=== PATIENT | female | born 1985 | race Two or more races ===

== ENCOUNTER 2018-04-10 05:59 | Inpatient (IN) | payer BC ==
[2018-04-10] MEDS ORDERED: OXYTOCIN 10 UNIT/ML 1 ML VIAL IM PRN (06:10)
[2018-04-10] MEDS ORDERED: LIDOCAINE 0.5% (PF) 5 MG/ML (50 ML SDV) SQ PRN (06:10)
[2018-04-10] MEDS ORDERED: METHYLERGONOVINE 0.2 MG/ML 1 ML AMP IM PRN (06:10)
[2018-04-10] MEDS ORDERED: CARBOPROST TROMETHAMINE 250 MCG/ML 1 ML AMP IM PRN (06:10)
[2018-04-10] MEDS ORDERED: TERBUTALINE 1 MG/ML VIAL SQ PRN (06:10)
[2018-04-10] MEDS ORDERED: OXYTOCIN 30 UNITS/500 ML NS 30 UNIT in SALINE 1 500ML.BAG IV SCH (06:15)
[2018-04-10] MEDS ORDERED: LACTATED RINGERS 1,000 ML IV SCH (06:15)
[2018-04-10 06:19] VITALS: BMI 26.6
[2018-04-10] MEDS: LACTATED RINGERS 1,000 ML IV SCH ×2 (06:21→14:02)
[2018-04-10] MEDS ORDERED: PENICILLIN G POTASSIUM 5,000,000 UNIT in DEXTROSE 5% IN WATER 100 ML IVPB STA ×2 (06:29)
[2018-04-10 06:31] LABS: Basophils % (A) 0 %; Eosinophils # (A) 0.1 k/uL (0-0.7); Eosinophils % (A) 1 %; HCT 29.5 % (34.0-46.0); HGB 9.5 gm/dL (11.4-16.0); Hypochromasia Marked; Lymphocytes # (A) 2.5 k/uL (1.0-4.8); Lymphocytes % (A) 20 %; MCHC 32.2 g/dL (31.0-37.0); Mean Platelet Volume 8.9; Monocytes # (A) 0.6 k/uL (0-1.0); Monocytes % (A) 5 %; Neutrophils # (A) 9.2 k/uL (1.3-7.7); Neutrophils % (A) 73 %; Platelet Count 299 k/uL (150-450); RBC 3.65 m/uL (3.80-5.40); RDW 15.2 % (11.5-15.5); WBC 12.6 k/uL (3.8-10.6)
[2018-04-10] MEDS ORDERED: BUTORPHANOL 1 MG/ML 1 ML VIAL IV PRN (08:28)
--- NOTE | 2018-04-10 08:28 | P.HPOB ---
History of Present Illness H&P Date: 04/10/18 Chief Complaint: IUP at 40 and 0/7 weeks This is a 32-year-old 1 para 0 at 40 and 0/sevenths weeks with an estimated due date of 226. Patient states she is feeling good movement she denies contractions or vaginal bleeding or loss of fluid. Patient has been receiving routine care with myself since the first trimester. Patient is noted to be rubella nonimmune and GBS positive. Further blood work revealed a blood type of O+, RPR nonreactive hepatitis B surface antigen negative HIV negative informaseq obtained on 10/09 and negative. She did pass her Glucola on 01/03 with a result of 80. T Was administered on 01/31. Gestational anemia was noted and 02/21 hemoglobin of 9.9 for which she is taking iron. Review of Systems Constitutional: Denies chills, Denies fatigue, Denies fever Cardiovascular: Reports leg edema Respiratory: Denies dyspnea Gastrointestinal: Denies constipation, Denies diarrhea, Denies nausea, Denies vomiting Genitourinary: Reports Past Medical History Past Medical History: No Reported History History of Any Multi-Drug Resistant Organisms: None Reported Past Surgical History: No Surgical Hx Reported Past Anesthesia/Blood Transfusion Reactions: No Reported Reaction Past Psychological History: No Psychological Hx Reported Smoking Status: Never smoker Past Alcohol Use History: None Reported Past Drug Use History: None Reported - Past Family History Mother Family Medical History: No Reported History Medications and Allergies Home Medications Medication Instructions Recorded Confirmed Type Pnv No.95/Ferrous Fum/Folic AC 1 tab PO ONCE 04/10/18 04/10/18 History [ Multivitamin Tablet] Allergies Allergy/AdvReac Type Severity Reaction Status Date / Time No Known Allergies Allergy Verified 04/10/18 06:09 Exam Osteopathic Statement: *. No significant issues noted on an osteopathic structural exam other than those noted in the History and Physical/Consult. Vital Signs Temp Pulse Resp BP Pulse Ox 04/10/18 06:08 97 F L 103 H 16 131/78 100 Intake and Output 04/09/18 04/10/18 04/10/18 22:59 06:59 14:59 Other: Weight 70.307 kg Targeted physical exam was performedin general this is a well-nourished well- developed female in no acute distress breathing is noted to be nonlabored and lungs are noted to be clear to auscultation bilaterally, heart is known to have a regular rate and rhythm, abdomen to be gravid and appropriate for gestational age, on vaginal exam she is noted to be 4/80/-1 amniotomy performed with scant fluid vertex presentation is confirmed by ultrasound. Results Result Diagrams: 04/10/18 06:25 Abnormal Lab Results - Last 24 Hours (Table) 04/10/18 Range/Units 06:25 WBC 12.6 H (3.8-10.6) k/uL RBC 3.65 L (3.80-5.40) m/uL Hgb 9.5 L (11.4-16.0) gm/dL Hct 29.5 L (34.0-46.0) % Neutrophils # 9.2 H (1.3-7.7) k/uL Assessment and Plan (1) Term Current Visit: Yes Status: Acute Code(s): Z34.80 - ENCOUNTER FOR SUPRVSN OF NORMAL , UNSP TRIMESTER SNOMED Code(s): 22841811 (2) Positive GBS test Current Visit: Yes Status: Acute Code(s): B95.1 - STREPTOCOCCUS, GROUP B, CAUSING DISEASES CLASSD [facility] SNOMED Code(s): 1759003418027 Plan: Patient is admitted to labor and delivery for Pitocin induction of labor. Amniotomy was performed and scant fluid was obtained most likely to the low station of the head. Patient does desire epidural for pain management we will consult anesthesia at that time. Anticipate spontaneous vaginal delivery later this afternoon.
[2018-04-10] MEDS ORDERED: PRENATAL VIT-IRON-FOLIC ACID 1 EACH CAP PO ONE (08:30)
[2018-04-10] MEDS ORDERED: fentaNYL (PF) 50 MCG/ML 5 ML AMP ONE (09:52)
[2018-04-10] MEDS ORDERED: ROPIVACAINE 5MG/ML 20ML VIAL ONE (09:52)
[2018-04-10] MEDS ORDERED: SODIUM CHLORIDE 0.9% 100 ML BAG ONE (09:52)
[2018-04-10] MEDS: PENICILLIN G POTASSIUM 2,500,000 UNIT in DEXTROSE 5% IN WATER 100 ML IVPB SCH ×4 (11:40→23:14)
[2018-04-10] MEDS ORDERED: ROPIVACAINE 100 MG, fentaNYL (PF) 200 MCG in SODIUM CHLORIDE 0.9% 76 ML EPIDURAL ONE (12:36)
[2018-04-10] MEDS ORDERED: SIMETHICONE 80 MG CHEWABLE PO PRN (15:26)
[2018-04-10] MEDS ORDERED: LANOLIN CREAM 5 GM TUBE TOPICAL PRN (15:26)
[2018-04-10] MEDS ORDERED: diphenhydrAMINE 25 MG CAP PO PRN (15:26)
[2018-04-10] MEDS ORDERED: diphenhydrAMINE 50 MG/ML 1 ML VIAL IVP PRN ×2 (15:26)
[2018-04-10] MEDS ORDERED: ZOLPIDEM 5 MG TAB PO PRN (15:26)
[2018-04-10] MEDS ORDERED: diphenhydrAMINE 50 MG CAP PO PRN (15:26)
[2018-04-10] MEDS ORDERED: WITCH HAZEL 1 EACH MED..PAD TOPICAL PRN (15:26)
[2018-04-10] MEDS ORDERED: ACETAMINOPHEN TAB 325 MG TAB PO PRN (15:26)
[2018-04-10] MEDS ORDERED: HYDROCORTISONE 2.5% RECTAL CREAM 30 GM TUBE RECTAL PRN (15:26)
[2018-04-10] MEDS ORDERED: BENZOCAINE/MENTHOL SPRAY 1 GM/SPRAY AEROSOL TOPICAL PRN (15:26)
[2018-04-10] MEDS ORDERED: OXYTOCIN 20 UNITS/1000 ML NS 1,000 ML IV SCH (15:30)
--- NOTE | 2018-04-10 15:32 | P.PROBDLV ---
Vaginal Delivery Note - . Vaginal Delivery Note: This is a very pleasant 32-year-old 1 para 0 at 40-0/7 weeks that presented to labor and delivery for elective induction of labor. Patient noted good movement at that time Pitocin induction of labor was begun. Patient became uncomfortable eventually requesting an epidural which was placed without difficulty by the anesthesia department. Patient progressed to complete began pushing and secondary to nonreassuring heart tones with the scalp visable, labial seperation the vacuum was placed. Suction was applied into the green zone through 2 contractions 3 pulls and the infant was delivered via vacuum assist vaginal delivery. At 1504, weight of 7 lbs. 11 oz. with Apgars of 7 and 9 at one and 5 minutes respectively. A midline episiotomy was preformed along with the vacuum assist vaginal delivery. A slight extension to a third degree was noted and this was repaired in the usual fashion with 3-0 Rapide. Rectal exam was performed before and after the vaginal repair was completed and noted to be intact with no defects being noted. The placenta was doubly clamped and cut after a 2 minute delay and the placenta was delivered spontaneously intact with a three-vessel cord being noted. Bleeding was noted to be minimal and the uterus was firm and below the umbilicus estimated blood loss for this delivery was 300 mL. Inspection the patient's vaginal vault noted no further defects. Infant and patient tolerated delivery well and are resting comfortably.
[2018-04-10] MEDS: IBUPROFEN 600 MG TAB PO PRN (17:18)
[2018-04-10] MEDS: SENNOSIDES-DOCUSATE SODIUM 1 EACH TAB PO SCH (20:34)
[2018-04-11] MEDS: IBUPROFEN 600 MG TAB PO PRN ×2 (00:23→15:12)
[2018-04-11 07:06] LABS: Basophils % (A) 0 %; Eosinophils # (A) 0.1 k/uL (0-0.7); Eosinophils % (A) 0 %; HCT 24.5 % (34.0-46.0); Hypochromasia Marked; Lymphocytes # (A) 1.7 k/uL (1.0-4.8); Lymphocytes % (A) 9 %; MCH 24.7 pg (25.0-35.0); MCHC 30.1 g/dL (31.0-37.0); MCV 82.1 fL (80.0-100.0); Mean Platelet Volume 9.6; Monocytes # (A) 0.7 k/uL (0-1.0); Monocytes % (A) 4 %; Neutrophils # (A) 15.7 k/uL (1.3-7.7); Neutrophils % (A) 85 %; Platelet Count 247 k/uL (150-450); RBC 2.99 m/uL (3.80-5.40); RDW 15.4 % (11.5-15.5); WBC 18.4 k/uL (3.8-10.6)
[2018-04-11 07:16] LABS: HGB 7.4 gm/dL (11.4-16.0)
[2018-04-11 08:23] VITALS: BP 130/74; PULSE 100; RESP 19; TEMP 97.6
--- NOTE | 2018-04-11 08:23 | P.DS ---
Providers Date of admission: 04/10/18 05:59 Expected date of discharge: 04/11/18 Attending physician: Iram Sands Primary care physician: Stated None - Discharge Diagnosis(es) (1) Term Current Visit: Yes Status: Acute (2) Positive GBS test Current Visit: Yes Status: Acute (3) Status post vacuum-assisted vaginal delivery Current Visit: Yes Status: Acute (4) Third degree perineal laceration Current Visit: Yes Status: Acute Hospital Course: This is a 32-year-old 1 para 0 admitted to labor and delivery for elective induction of labor at 40 0/7 weeks. Pitocin induction of labor was begun and patient progressed through labor amniotomy was performed and clear fluid was obtained. Patient became uncomfortable eventually requesting an epidural which was placed by anesthesia without difficulty. Patient progressed to complete began pushing and secondary to nonreassuring heart tones a vacuum was applied and a vacuum-assisted vaginal delivery was completed with 2 sets of contractions. A midline episiotomy was performed prior to vacuum placement this had a slight extension to a third-degree. Patient had a viable female at 1504 weight of 7 lbs. 11 oz. Apgars of 7 and 9 at one and 5 minutes respectively. Patient has done well . She is involuting and voiding without difficulty. She denies pain this morning. She states her lochia is moderate. She is breast feeding without difficulty. Patient Condition at Discharge: Good Plan - Discharge Summary New Discharge Prescriptions: No Action Pnv No.95/Ferrous Fum/Folic AC [ Multivitamin Tablet] 1 tab PO ONCE Discharge Medication List Pnv No.95/Ferrous Fum/Folic AC [ Multivitamin Tablet] 1 tab PO ONCE [History] Follow up Appointment(s)/Referral(s): Iram Sands DO [Doctor of Osteopathic Medicine] - 4 Weeks Patient Instructions/Handouts: Vaginal Delivery (DC), Vaginal Delivery (GEN) Activity/Diet/Wound Care/Special Instructions: No tub baths or intercourse until 6 weeks Discharge Disposition: HOME SELF-CARE
[2018-04-11] MEDS ORDERED: MEASLES-MUMPS-RUBELLA VACC/PF 12,500 UNIT/0.5 ML VIAL SQ ONE (08:45)
[2018-04-11] MEDS: SENNOSIDES-DOCUSATE SODIUM 1 EACH TAB PO SCH (09:35)
== END 2018-04-11 16:15 | disposition home or self-care (01) | DRG 768 ==
LOC: 4FBP 05:59
PROVIDERS: ADMIT Obstetrics & Gynecology Obstetrics; ATTEND Obstetrics & Gynecology Obstetrics
PROC: 3E0R3NZ Introduction of Analgesics, Hypnotics, Sedatives into Spinal Canal, Percutaneous Approach (ICD-10-PCS; principal; 2018-04-10)
PROC: 0DQR0ZZ Repair Anal Sphincter, Open Approach (ICD-10-PCS; principal; 2018-04-10)
PROC: 10907ZC Drainage of Amniotic Fluid, Therapeutic from Products of Conception, Via Natural or Artificial Opening (ICD-10-PCS; principal; 2018-04-10)
PROC: 3E033VJ Introduction of Other Hormone into Peripheral Vein, Percutaneous Approach (ICD-10-PCS; principal; 2018-04-10)
PROC: 00HU33Z Insertion of Infusion Device into Spinal Canal, Percutaneous Approach (ICD-10-PCS; principal; 2018-04-10)
PROC: 10D07Z6 Extraction of Products of Conception, Vacuum, Via Natural or Artificial Opening (ICD-10-PCS; principal; 2018-04-10)
DX: O48.0 Post-term pregnancy (principal); Z37.0 Single live birth; O70.20 Third degree perineal laceration during delivery, unspecified; Z3A.40 40 weeks gestation of pregnancy; O99.824 Streptococcus B carrier state complicating childbirth; O99.02 Anemia complicating childbirth; O76 Abnormality in fetal heart rate and rhythm complicating labor and delivery
CPT/HCPCS: 85025; 86850; 86900; 86901; 88307; 90707

== ENCOUNTER 2020-08-28 06:12 | Inpatient (IN) | payer BC ==
[2020-08-28] MEDS ORDERED: METHYLERGONOVINE 0.2 MG/ML 1 ML AMP IM PRN (06:34)
[2020-08-28] MEDS ORDERED: LIDOCAINE 0.5% (PF) 5 MG/ML (50 ML SDV) SQ PRN (06:34)
[2020-08-28] MEDS ORDERED: OXYTOCIN 10 UNIT/ML 1 ML VIAL IM PRN (06:34)
[2020-08-28] MEDS ORDERED: TERBUTALINE 1 MG/ML VIAL SQ PRN (06:34)
[2020-08-28] MEDS ORDERED: CARBOPROST TROMETHAMINE 250 MCG/ML 1 ML AMP IM PRN (06:34)
[2020-08-28] MEDS ORDERED: AMPICILLIN 2,000 MG in SODIUM CHLORIDE 0.9% 100 ML IVPB STA (06:34)
[2020-08-28] MEDS ORDERED: OXYTOCIN 30 UNITS/500 ML NS 30 UNIT in SALINE 1 500ML.BAG IV SCH ×2 (06:45→12:45)
[2020-08-28] MEDS: LACTATED RINGERS 1,000 ML IV SCH ×2 (06:53→09:55)
[2020-08-28 07:18] LABS: Anisocytosis Moderate; Basophils # (A) 0.1 k/uL (0-0.2); Basophils % (A) 1 %; Eosinophils # (A) 0.1 k/uL (0-0.7); Eosinophils % (A) 1 %; HCT 39.6 % (34.0-46.0); HGB 12.5 gm/dL (11.4-16.0); Hypochromasia Slight; Lymphocytes # (A) 2.2 k/uL (1.0-4.8); Lymphocytes % (A) 23 %; MCH 28.4 pg (25.0-35.0); MCHC 31.6 g/dL (31.0-37.0); MCV 89.9 fL (80.0-100.0); Mean Platelet Volume 9.6; Monocytes # (A) 0.5 k/uL (0-1.0); Monocytes % (A) 5 %; Neutrophils # (A) 6.6 k/uL (1.3-7.7); Neutrophils % (A) 68 %; Platelet Count 326 k/uL (150-450); RBC 4.41 m/uL (3.80-5.40); RDW 22.5 % (11.5-15.5); WBC 9.7 k/uL (3.8-10.6)
[2020-08-28] MEDS ORDERED: ROPIVACAINE 5MG/ML 20ML VIAL ONE (09:28)
[2020-08-28] MEDS ORDERED: fentaNYL (PF) 50 MCG/ML 5 ML AMP ONE (09:28)
[2020-08-28] MEDS ORDERED: SODIUM CHLORIDE 0.9% 100 ML BAG ONE (09:28)
--- NOTE | 2020-08-28 10:18 | P.HPOB ---
History of Present Illness H&P Date: 08/28/20 Chief Complaint: IUP at 39-6/7 weeks, history of vacuum assist vaginal delivery This is a 35-year-old at 39-6/7 weeks, EDC of 08/29/2020 based on LMP c/w US, that presents to labor and delivery for elective induction of labor. Patient has been receiving routine care with myself. Patient has been seeing hematology for known iron deficiency anemia and has received iron infusions. Patient notes good movement this morning, she denies contractions loss of fluid or vaginal bleeding. Patient has a blood type of O+, rubella status immune, RPR nonreactive, hepatitis B surface antigen negative, HIV negative, she did undergo genetic screening with [place] [id number] which was negative, group beta strep culture was positive Review of Systems Constitutional: Denies chills, Denies fatigue, Denies fever Ears, nose, mouth and throat: Denies headache Cardiovascular: Reports leg edema Respiratory: Denies dyspnea Gastrointestinal: Denies constipation, Denies diarrhea, Denies nausea, Denies vomiting Genitourinary: Reports Past Medical History Past Medical History: No Reported History History of Any Multi-Drug Resistant Organisms: None Reported Past Surgical History: No Surgical Hx Reported Past Anesthesia/Blood Transfusion Reactions: No Reported Reaction Smoking Status: Never smoker - Past Family History Mother Family Medical History: No Reported History Medications and Allergies Home Medications Medication Instructions Recorded Confirmed Type Pnv No.95/Ferrous Fum/Folic AC 1 tab PO ONCE 04/10/18 08/28/20 History [ Multivitamin Tablet] Aspirin 1 tab PO DAILY 04/09/20 08/28/20 History Allergies Allergy/AdvReac Type Severity Reaction Status Date / Time No Known Allergies Allergy Verified 08/28/20 06:33 Exam Osteopathic Statement: *. No significant issues noted on an osteopathic structural exam other than those noted in the History and Physical/Consult. 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 heart tones returned be category 1 and she is olivier irregularly. Results Result Diagrams: 08/28/20 06:56 Abnormal Lab Results - Last 24 Hours (Table) 08/28/20 Range/Units 06:56 RDW 22.5 H (11.5-15.5) % Assessment and Plan (1) H/O delivery by vacuum extraction, currently Current Visit: Yes Status: Acute Code(s): O09.299 - SUPRVSN OF PREG W POOR REPRODCTV OR OBSTET HISTORY, UNSP TRI SNOMED Code(s): 403900840 (2) Positive GBS test Current Visit: No Status: Acute Code(s): B95.1 - STREPTOCOCCUS, GROUP B, CAUSING DISEASES CLASSD [facility] SNOMED Code(s): 476287964 (3) Term Current Visit: No Status: Acute Code(s): Z34.80 - ENCOUNTER FOR SUPRVSN OF NORMAL , UNSP TRIMESTER SNOMED Code(s): 96305447 Plan: 35-year-old at 39 and 6 that presents to labor and delivery for induction of labor. Patient is admitted to labor and delivery and Pitocin induction of labor is begun. Antibiotics are begun given her group beta strep culture being positive. Epidural is desired by the patient for analgesia during labor. A nesthesia will be notified. Anticipate spontaneous vaginal delivery later today.
[2020-08-28] MEDS: AMPICILLIN 1,000 MG in SODIUM CHLORIDE 0.9% 50 ML IVPB SCH ×2 (10:56→16:19)
[2020-08-28] MEDS ORDERED: SIMETHICONE 80 MG CHEWABLE PO PRN (12:42)
[2020-08-28] MEDS ORDERED: diphenhydrAMINE 50 MG CAP PO PRN (12:42)
[2020-08-28] MEDS ORDERED: BENZOCAINE/MENTHOL SPRAY 1 GM/SPRAY AEROSOL TOPICAL PRN (12:42)
[2020-08-28] MEDS ORDERED: diphenhydrAMINE 50 MG/ML 1 ML VIAL IVP PRN ×2 (12:42)
[2020-08-28] MEDS ORDERED: diphenhydrAMINE 25 MG CAP PO PRN (12:42)
[2020-08-28] MEDS ORDERED: ZOLPIDEM 5 MG TAB PO PRN (12:42)
[2020-08-28] MEDS ORDERED: ACETAMINOPHEN TAB 325 MG TAB PO PRN (12:42)
[2020-08-28] MEDS ORDERED: HYDROCORTISONE 2.5% RECTAL CREAM 30 GM TUBE RECTAL PRN (12:42)
[2020-08-28] MEDS ORDERED: LANOLIN CREAM 5 GM TUBE TOPICAL PRN (12:42)
[2020-08-28] MEDS ORDERED: PRENATAL VIT-IRON-FOLIC ACID 1 EACH CAP PO ONE (12:45)
--- NOTE | 2020-08-28 12:50 | P.PROBDLV ---
Vaginal Delivery Note - . Vaginal Delivery Note: 35-year-old at 39-6/7 weeks presented to labor and delivery for induction of labor. Patient had an ultrasound yesterday with borderline low amniotic fluid index at 9. Patient has a history of iron deficiency anemia for which she has been receiving iron infusions. Patient in addition had a vacuum-assisted vaginal delivery with her last delivery secondary to nonreassuring heart tones. Patient was admitted to labor and delivery and Pitocin induction of labor was begun per hospital protocol. Patient was noted to be 4 cm upon amniotomy, scant fluid was appreciated. Vertex presentation was confirmed by ultrasound. Patient soon became uncomfortable and did request epidural placement. Anesthesia was notified and epidural was placed without difficulty. Patient progressed to complete noted category 2 heart tones. Patient began pushing bradycardia was noted with heart tones in the 70s therefore a vacuum was applied and with one push from mom and pull of the vaccum the was delivered in an occiput posterior presentation suction was deactivated and the anterior followed by the posterior shoulder were delivered along with the body. (Vacuum was only applied prior to pushing, head was appreciated within the vacuum cup no vaginal mucosa was appreciated, vacuum was applied with contraction noted to be within the green section of pressure.) The umbilical cord was doubly clamped and cut meconium-stained fluid was appreciated. The was handed off to awaiting RN for evaluation. Spontaneous cry was noted at . Scant amniotic fluid was appreciated throughout the delivery. Cord blood was then taken. The placenta was then delivered spontaneously intact with three-vessel cord being noted. On inspection the patient's vaginal vault a second-degree laceration was appreciated this was repaired in the usual fashion with 3-0 Rapide. Instillation of lidocaine was preformed prior to repair. Hemostasis was appreciated after repair. Uterus was noted to be firm and below the umbilicus after delivery. Estimated blood loss 200 mL. Rectal exam was performed after repair and found to be normal in nature. All counts were noted to be correct 2 at the end of the delivery. Patient and infant tolerated delivery well and are resting comfortably.
[2020-08-28] MEDS: IBUPROFEN 600 MG TAB PO SCH ×2 (16:15→20:33)
[2020-08-28 20:58] VITALS: RESP 16
[2020-08-29] MEDS: SENNOSIDES-DOCUSATE SODIUM 1 EACH TAB PO SCH ×3 (00:14→19:51)
[2020-08-29 07:44] LABS: Anisocytosis Moderate; Basophils % (A) 0 %; Eosinophils # (A) 0.1 k/uL (0-0.7); Eosinophils % (A) 0 %; HCT 35.6 % (34.0-46.0); HGB 11.6 gm/dL (11.4-16.0); Hypochromasia Slight; Lymphocytes # (A) 1.4 k/uL (1.0-4.8); Lymphocytes % (A) 10 %; MCH 29.7 pg (25.0-35.0); MCHC 32.7 g/dL (31.0-37.0); MCV 90.8 fL (80.0-100.0); Mean Platelet Volume 8.8; Monocytes # (A) 0.5 k/uL (0-1.0); Monocytes % (A) 3 %; Neutrophils # (A) 12.5 k/uL (1.3-7.7); Neutrophils % (A) 86 %; Platelet Count 271 k/uL (150-450); RBC 3.92 m/uL (3.80-5.40); RDW 21.9 % (11.5-15.5); WBC 14.6 k/uL (3.8-10.6)
[2020-08-29] MEDS: IBUPROFEN 600 MG TAB PO SCH ×2 (09:03→15:45)
[2020-08-29] MEDS: PRENATAL VIT-IRON-FOLIC ACID 1 EACH CAP PO SCH (09:06)
--- NOTE | 2020-08-29 10:06 | P.PNOBGVD ---
Subjective - Subjective Patient reports: Reports appetite normal, Reports voiding normally, Reports pain well controlled, Reports ambulating normally : doing well, in NICU (Being followed for possible cephalohematoma.) Objective - Latest Vital Signs Latest vital signs: Vital Signs Temp Pulse Resp BP Pulse Ox 08/29/20 09:00 97.9 F 75 16 110/72 08/29/20 00:00 98.4 F 87 16 109/63 08/28/20 20:00 97.8 F 67 14 100/63 97 08/28/20 14:35 97.4 F L 68 14 110/58 08/28/20 14:05 70 14 101/57 08/28/20 13:35 85 14 104/64 08/28/20 13:20 76 14 101/58 08/28/20 13:05 78 14 104/58 08/28/20 12:50 85 16 102/55 08/28/20 12:35 98.6 F 89 16 110/58 Intake and Output 08/28/20 08/29/20 08/29/20 22:59 06:59 14:59 Other: # Voids 1 1 - Exam Extremities: Present: normal Abdomen: Present: normal appearance, soft Uterus: Present: normal, firm (The uterine fundus as tonic and nontender at the umbilicus.) - Labs Labs: Abnormal Lab Results - Last 24 Hours (Table) 08/29/20 Range/Units 07:28 WBC 14.6 H (3.8-10.6) k/uL RDW 21.9 H (11.5-15.5) % Neutrophils # 12.5 H (1.3-7.7) k/uL Assessment and Plan (1) Status post vacuum-assisted vaginal delivery Current Visit: No Status: Acute Code(s): Z87.59 - PERSONAL HISTORY OF COMP OF PREG, CHLDBRTH AND THE PUERP SNOMED Code(s): 999459730 Plan: Continue routine care. I would anticipate possible discharge home tomorrow pending no complications.
[2020-08-30] MEDS: IBUPROFEN 600 MG TAB PO SCH ×2 (04:26→07:51)
[2020-08-30] MEDS: SENNOSIDES-DOCUSATE SODIUM 1 EACH TAB PO SCH (08:21)
[2020-08-30] MEDS: PRENATAL VIT-IRON-FOLIC ACID 1 EACH CAP PO SCH (08:21)
[2020-08-30 08:29] VITALS: BP 99/62; PULSE 70; TEMP 97.9
--- NOTE | 2020-08-30 11:42 | P.DS ---
Providers Date of admission: 08/28/20 06:12 Expected date of discharge: 08/30/20 Attending physician: Iram Sansd Primary care physician: Stated None - Discharge Diagnosis(es) (1) Status post vacuum-assisted vaginal delivery Current Visit: No Status: Acute Hospital Course: The patient is a 35-year-old 2 para 1001 admitted at 39-6/7 weeks by louis crocker. She is admitted for elective induction with all signs reassuring. Her has been complicated only by iron deficiency anemia for which she has received iron infusions during the through hematology. Group B strep status is negative. On labor and delivery, she had Pitocin started followed by artificial rupture of membranes. She made progress and had an epidural catheter placed for analgesia. She ultimately progressed to complete and then had a vacuum-assisted normal spontaneous vaginal delivery of a viable 6 lbs. 14 oz. baby boy with Apgars of 8 at 1 minute and 9 at 5 minutes. Her course was unremarkable with vital signs or any stable and her temperature was afebrile throughout. Her was taken to the nursery for observation for possible cephalohematoma but was released to the room on day #1. She was deemed stable for discharge on day #2 when the was released and was discharged home to follow-up in the office in 6 weeks' time routinely. Discharge instructions included calling for any significantly increased bleeding or foul-smelling lochia, significantly increased fever abdominal pain, perineal complaints, breast complaints, or anything also concerned her. She was additionally instructed to have nothing in the vagina for at least 6 weeks time to include intercourse. She understood her instructions and agrees to follow up as noted above. Discharge medications included continued vitamins as she has opted to breast-feed. She was otherwise to use [id number] analgesic pain medications as needed. Maternal blood type is O+ and rubella status is immune. Procedures: #1. Pitocin induction #2. Artificial rupture of membranes #3. Epidural anal gesia #4. Vacuum-assisted vaginal delivery #5. Repair of perineal laceration Patient Condition at Discharge: Stable Plan - Discharge Summary New Discharge Prescriptions: No Action Pnv No.95/Ferrous Fum/Folic AC [ Multivitamin Tablet] 1 tab PO ONCE Aspirin 1 tab PO DAILY Discharge Medication List Pnv No.95/Ferrous Fum/Folic AC [ Multivitamin Tablet] 1 tab PO ONCE 04/10/18 [History] Aspirin 1 tab PO DAILY 04/09/20 [History] Follow up Appointment(s)/Referral(s): Iram Sands DO [Doctor of Osteopathic Medicine] - 6 Weeks Discharge Disposition: HOME SELF-CARE
== END 2020-08-30 13:50 | disposition home or self-care (01) | DRG 807 ==
LOC: 4FBP 06:12
PROVIDERS: ADMIT Obstetrics & Gynecology Obstetrics; ATTEND Obstetrics & Gynecology Obstetrics
PROC: 0KQM0ZZ Repair Perineum Muscle, Open Approach (ICD-10-PCS; principal; 2020-08-28)
PROC: 3E033VJ Introduction of Other Hormone into Peripheral Vein, Percutaneous Approach (ICD-10-PCS; principal; 2020-08-28)
PROC: 00HU33Z Insertion of Infusion Device into Spinal Canal, Percutaneous Approach (ICD-10-PCS; principal; 2020-08-28)
PROC: 3E0R3NZ Introduction of Analgesics, Hypnotics, Sedatives into Spinal Canal, Percutaneous Approach (ICD-10-PCS; principal; 2020-08-28)
PROC: 10907ZC Drainage of Amniotic Fluid, Therapeutic from Products of Conception, Via Natural or Artificial Opening (ICD-10-PCS; principal; 2020-08-28)
PROC: 10D07Z6 Extraction of Products of Conception, Vacuum, Via Natural or Artificial Opening (ICD-10-PCS; principal; 2020-08-28)
DX: O99.02 Anemia complicating childbirth (principal); Z37.0 Single live birth; D50.9 Iron deficiency anemia, unspecified; O70.1 Second degree perineal laceration during delivery; O76 Abnormality in fetal heart rate and rhythm complicating labor and delivery; O77.0 Labor and delivery complicated by meconium in amniotic fluid; O99.824 Streptococcus B carrier state complicating childbirth; Z3A.39 39 weeks gestation of pregnancy; Z79.82 Long term (current) use of aspirin
CPT/HCPCS: 85025; 86850; 86900; 86901; 88307

== ENCOUNTER 2023-09-13 06:00 | Inpatient (IN) | payer BC ==
[2023-09-13] MEDS ORDERED: miSOPROStoL 200 MCG TAB PO PRN (06:26)
[2023-09-13] MEDS ORDERED: TRANEXAMIC 1,000 MG/100ML-NACL 1,000 MG in EMPTY BAG 1 BAG IV PRN (06:26)
[2023-09-13] MEDS ORDERED: TERBUTALINE 1 MG/ML VIAL SQ PRN (06:26)
[2023-09-13] MEDS ORDERED: METHYLERGONOVINE 0.2 MG/ML 1 ML AMP IM PRN (06:26)
[2023-09-13] MEDS ORDERED: OXYTOCIN 10 UNIT/ML 1 ML VIAL IM PRN (06:26)
[2023-09-13] MEDS ORDERED: CARBOPROST TROMETHAMINE 250 MCG/ML 1 ML AMP IM PRN (06:26)
[2023-09-13] MEDS ORDERED: miSOPROStoL 200 MCG TAB RECTAL PRN (06:26)
[2023-09-13 06:42] LABS: Anisocytosis Moderate; Basophils % (A) 0 %; Eosinophils # (A) 0.1 k/uL (0-0.7); Eosinophils % (A) 1 %; HCT 29.9 % (34.0-46.0); HGB 9.1 gm/dL (11.4-16.0); Hypochromasia Marked; Lymphocytes % (A) 23 %; MCH 24.2 pg (25.0-35.0); MCHC 30.4 g/dL (31.0-37.0); MCV 79.6 fL (80.0-100.0); Mean Platelet Volume 9.5; Microcytosis Slight; Monocytes # (A) 0.5 k/uL (0-1.0); Monocytes % (A) 5 %; Neutrophils # (A) 5.8 k/uL (1.3-7.7); Neutrophils % (A) 68 %; Platelet Count 338 k/uL (150-450); RBC 3.76 m/uL (3.80-5.40); RDW 20.9 % (11.5-15.5); WBC 8.4 k/uL (3.8-10.6)
[2023-09-13] MEDS: LACTATED RINGERS 1,000 ML IV SCH (06:47)
[2023-09-13] MEDS: AMPICILLIN 2,000 MG in SODIUM CHLORIDE 0.9% 100 ML IVPB STA (06:47)
[2023-09-13] MEDS: OXYTOCIN 30 UNITS/500 ML NS 30 UNIT in SALINE 1 500ML.BAG IV SCH (07:00)
[2023-09-13] MEDS: PENICILLIN G POTASSIUM 5,000,000 UNIT in DEXTROSE 5% IN WATER 100 ML IVPB STA (07:11)
--- NOTE | 2023-09-13 08:31 | P.HPOB ---
History of Present Illness H&P Date: 09/13/23 Chief Complaint: IUP at 39 weeks, anemia 38-year-old at 39 weeks of that presents to labor and delivery for scheduled induction of labor. Patient has known anemia and has been receiving iron infusions. Hemoglobin upon admission is 9.1. Patient notes good movement denies contractions vaginal bleeding or loss of fluid. On blood work this patient has a blood type of a positive, rubella status immune, hepatitis B surface engine negative, HIV negative, RPR is nonreactive, grew beta strep culture was positive. Review of Systems Constitutional: Denies chills, Denies fatigue, Denies fever Ears, nose, mouth and throat: Denies headache Cardiovascular: Denies leg edema Respiratory: Denies dyspnea Gastrointestinal: Denies constipation, Denies diarrhea, Denies nausea, Denies vomiting Genitourinary: Reports Past Medical History Past Medical History: Blood Disorder Additional Past Medical History / Comment(s): ANEMIA. History of Any Multi-Drug Resistant Organisms: None Reported Past Surgical History: No Surgical Hx Reported Past Anesthesia/Blood Transfusion Reactions: No Reported Reaction Past Psychological History: No Psychological Hx Reported Smoking Status: Never smoker Past Alcohol Use History: None Reported Past Drug Use History: None Reported - Past Family History Mother Family Medical History: No Reported History Medications and Allergies Home Medications Medication Instructions Recorded Confirmed Type Pnv No.95/Ferrous Fum/Folic AC 1 tab PO ONCE 04/10/18 09/13/23 History [ Multivitamin Tablet] Ferrous Sulfate [Iron] 1 tab PO DAILY 09/13/23 09/13/23 History Allergies Allergy/AdvReac Type Severity Reaction Status Date / Time No Known Allergies Allergy Verified 09/13/23 06:25 Exam Osteopathic Statement: *. No significant issues noted on an osteopathic structural exam other than those noted in the History and Physical/Consult. Vital Signs Temp Pulse Resp BP Pulse Ox 09/13/23 06:29 98.0 F 100 16 119/57 98 Intake and Output 09/12/23 09/13/23 09/13/23 22:59 06:59 14:59 Other: Weight 65.771 kg Targeted physical exam is performed this date in general this is a well- nourished well-developed female in no acute distress, breathing is nonlabored, heart has a regular rate rhythm, abdomen is gravid, on cervical exam she is 4/50/-2 station amniotomy was performed and scant fluid was obtained. heart tones noted to be category 1 and she is olivier every 1 to 2 minutes. Results Result Diagrams: 09/13/23 06:26 Abnormal Lab Results - Last 24 Hours (Table) 09/13/23 Range/Units 06:26 RBC 3.76 L (3.80-5.40) m/uL Hgb 9.1 L (11.4-16.0) gm/dL Hct 29.9 L (34.0-46.0) % MCV 79.6 L (80.0-100.0) fL MCH 24.2 L (25.0-35.0) pg MCHC 30.4 L (31.0-37.0) g/dL RDW 20.9 H (11.5-15.5) % Assessment and Plan (1) Anemia Current Visit: Yes Status: Acute Code(s): D64.9 - ANEMIA, UNSPECIFIED SNOMED Code(s): 663214654 (2) Positive GBS test Current Visit: No Status: Acute Code(s): B95.1 - STREPTOCOCCUS, GROUP B, [facility]US[facility] Code(s): 616844582 (3) Term Current Visit: No Status: Acute Code(s): Z34.80 - ENCOUNTER FOR SUPRVSN OF NORMAL , UNSP TRIMESTER SNOMED Code(s): 78935478 Plan: 38-year-old 3 para 2 at 39-0/7 weeks that presents to labor and delivery for induction of labor. Patient is admitted to labor and delivery and Pitocin induction of labor was begun per hospital protocol. Options for analgesia are discussed patient will consider but states she would like an epidural when appropriate. Anticipate spontaneous vaginal delivery.
[2023-09-13] MEDS ORDERED: ROPIVACAINE 5 MG/ML 30 ML VIAL ONE (09:16)
[2023-09-13] MEDS ORDERED: fentaNYL (PF) 50 MCG/ML 5 ML AMP ONE (09:16)
[2023-09-13] MEDS ORDERED: SODIUM CHLORIDE 0.9% 250 ML BAG ONE (09:16)
[2023-09-13] MEDS ORDERED: PENICILLIN G POTASSIUM 2,500,000 UNIT in DEXTROSE 5% IN WATER 100 ML IVPB SCH (10:30)
[2023-09-13] MEDS: AMPICILLIN 1,000 MG in SODIUM CHLORIDE 0.9% 50 ML IVPB SCH (11:07)
[2023-09-13] MEDS ORDERED: SIMETHICONE 80 MG CHEWABLE PO PRN (15:37)
[2023-09-13] MEDS ORDERED: ACETAMINOPHEN TAB 325 MG TAB PO PRN (15:37)
[2023-09-13] MEDS ORDERED: LANOLIN CREAM 1 GM TUBE TOPICAL PRN (15:37)
[2023-09-13] MEDS ORDERED: ZOLPIDEM 5 MG TAB PO PRN (15:37)
[2023-09-13] MEDS ORDERED: diphenhydrAMINE 25 MG CAP PO PRN (15:37)
[2023-09-13] MEDS ORDERED: HYDROCORTISONE 2.5% RECTAL CREAM 30 GM TUBE RECTAL PRN (15:37)
[2023-09-13] MEDS ORDERED: diphenhydrAMINE 50 MG/ML 1 ML VIAL IVP PRN ×2 (15:37)
[2023-09-13] MEDS ORDERED: diphenhydrAMINE 50 MG CAP PO PRN (15:37)
--- NOTE | 2023-09-13 15:38 | P.PROBDLV ---
Vaginal Delivery Note - . Vaginal Delivery Note: Findings viable male delivered at 1516, weight of 7 pounds 7 ounces, Apgars of 7 and 9 at 1 and 5 minutes respectively. 38-year-old 3 para 2-0-0-2 presented to labor and delivery this morning for scheduled induction of labor. Patient was noted to be 4+ centimeters in the office and known grew beta strep positive. Patient is 39-0/7 weeks today. Patient is admitted and Pitocin induction of labor has begun. Amniotomy is performed and clear fluid was obtained. Patient did become uncomfortable and request epidural placement. Patient made slow progress to complete. Once completely dilated patient began pushing and had a normal spontaneous vaginal delivery of a viable male infant at 1516 weight is pending. Loose body cord was delivered through. After 2-minute delay the umbilical cord was doubly clamped and cut and the infant was handed to the maternal abdomen. The placenta was delivered spontaneously intact with a three-vessel cord being noted. On inspection the patient's vaginal vault second-degree midline laceration was appreciated and repaired in the usual fashion with 3-0 repeat after injection of lidocaine. Uterus was noted to be firm and below the umbilicus. After closure of laceration hemostasis was appreciated. Estimated blood loss 100 cc All counts were correct x 2, patient already delivery well. Infant was noted to have some tachypnea and was taken to the nursery for further evaluation
[2023-09-13] MEDS: LIDOCAINE 0.5% (PF) 5 MG/ML (50 ML SDV) SQ PRN (15:49)
[2023-09-13] MEDS: BENZOCAINE/MENTHOL SPRAY 1 GM/SPRAY AEROSOL TOPICAL PRN (15:50)
[2023-09-13] MEDS: IBUPROFEN 600 MG TAB PO SCH (16:09)
[2023-09-13 16:26] VITALS: RESP 16
[2023-09-13] MEDS: SENNOSIDES-DOCUSATE SODIUM 1 EACH TAB PO SCH (19:39)
[2023-09-13] MEDS: ROPIVACAINE 225 MG, fentaNYL (PF). 450 MCG in SODIUM CHLORIDE 0.9% 171 ML EPIDURAL ONE (20:27)
[2023-09-14 07:16] LABS: Anisocytosis Moderate; Basophils % (A) 0 %; Eosinophils # (A) 0.1 k/uL (0-0.7); Eosinophils % (A) 1 %; HCT 29.2 % (34.0-46.0); HGB 8.8 gm/dL (11.4-16.0); Hypochromasia Marked; Lymphocytes # (A) 1.2 k/uL (1.0-4.8); Lymphocytes % (A) 10 %; MCH 24.5 pg (25.0-35.0); MCHC 30.3 g/dL (31.0-37.0); Mean Platelet Volume 10.1; Microcytosis Slight; Monocytes # (A) 0.6 k/uL (0-1.0); Monocytes % (A) 5 %; Neutrophils # (A) 10.8 k/uL (1.3-7.7); Neutrophils % (A) 84 %; Platelet Count 280 k/uL (150-450); RDW 20.7 % (11.5-15.5); WBC 12.9 k/uL (3.8-10.6)
[2023-09-14 09:06] VITALS: BP 107/65; PULSE 93; TEMP 98.7
--- NOTE | 2023-09-14 13:07 | P.DS ---
Providers Date of admission: 09/13/23 06:04 Expected date of discharge: 09/14/23 Attending physician: Iram Sands Primary care physician: Stated None - Discharge Diagnosis(es) (1) Anemia Current Visit: Yes Status: Acute (2) Positive GBS test Current Visit: No Status: Acute (3) Term Current Visit: No Status: Acute (4) Status post normal vaginal delivery Current Visit: Yes Status: Acute (5) Laceration, obstetrical, second degree Current Visit: Yes Status: Acute Hospital Course: This is a 38-year-old 3 para 2-0-0-2 at 39-0/7 weeks that presents to labor and delivery for induction of labor secondary to advanced cervical dilation and known GBS positive rectovaginal culture. Patient in addition has struggled with anemia and has been receiving IV iron throughout the . Patient was admitted to labor and delivery and Pitocin induction of labor was begun per hospital protocol. Amniotomy was performed and clear fluid was obtained. Patient did receive IV antibiotics for GBS prophylaxis. Patient progressed through labor becoming uncomfortable and requesting epidural. Epidural was placed without difficulty by the anesthesia department. Patient progressed toward complete dilation. Once completely dilated patient began pushing and had a normal spontaneous vaginal delivery of a viable male infant at 1516, weight of 7 pounds 7 ounces, Apgars of 7 and 9 at 1 and 5 minutes respectively. Patient did sustain a second-degree vaginal laceration which was repaired in the usual fashion with 3-0 Rapide. Patient's course has been uneventful. In this day #1 she is ambulating and voiding without difficulty. She is tolerating a regular diet without nausea or vomiting. States her pain is well-controlled. She denies concerns. She would like discharge home at 24 hours. Patient Condition at Discharge: Good Plan - Discharge Summary New Discharge Prescriptions: No Action Pnv No.95/Ferrous Fum/Folic AC [ Multivitamin Tablet] 1 tab PO ONCE Ferrous Sulfate [Iron] 1 tab PO DAILY Discharge Medication List Pnv No.95/Ferrous Fum/Folic AC [ Multivitamin Tablet] 1 tab PO ONCE 04/10/18 [History] Ferrous Sulfate [Iron] 1 tab PO DAILY 09/13/23 [History] Follow up Appointment(s)/Referral(s): Iram Sands DO [Doctor of Osteopathic Medicine] - 6 Weeks Patient Instructions/Handouts: Vaginal Delivery (GEN), Vaginal Delivery (DC) Activity/Diet/Wound Care/Special Instructions: No intercourse, or tub baths. Call with any fever, shakes or chills, with any pain not alleviated by over the counter meds, or with any questions or concerns. [id number] ibuprofen 600 mg or 3 tablets every 6 hours as needed for pain. Discharge Disposition: HOME SELF-CARE
== END 2023-09-14 17:05 | disposition home or self-care (01) | DRG 807 ==
LOC: 4FBP 06:04
PROVIDERS: ADMIT Obstetrics & Gynecology Obstetrics; ATTEND Obstetrics & Gynecology Obstetrics
PROC: 10907ZC Drainage of Amniotic Fluid, Therapeutic from Products of Conception, Via Natural or Artificial Opening (ICD-10-PCS; principal; 2023-09-13)
PROC: 3E033VJ Introduction of Other Hormone into Peripheral Vein, Percutaneous Approach (ICD-10-PCS; principal; 2023-09-13)
PROC: 10E0XZZ Delivery of Products of Conception, External Approach (ICD-10-PCS; principal; 2023-09-13)
PROC: 0KQM0ZZ Repair Perineum Muscle, Open Approach (ICD-10-PCS; principal; 2023-09-13)
DX: O99.02 Anemia complicating childbirth (principal); O99.824 Streptococcus B carrier state complicating childbirth; D64.9 Anemia, unspecified; O69.89X0 Labor and delivery complicated by other cord complications, not applicable or unspecified; O70.1 Second degree perineal laceration during delivery; Z79.899 Other long term (current) drug therapy; Z28.310 Unvaccinated for COVID-19; Z3A.39 39 weeks gestation of pregnancy; Z37.0 Single live birth
CPT/HCPCS: 85025; 86850; 86900; 86901